=== PATIENT | female | born 1960 | race African-American/Black ===

== ENCOUNTER 2018-05-10 12:28 | Emergency (ER) | payer OTHER ==
[2018-05-10 12:39] VITALS: BP 109/76; PULSE 66; TEMP 98.2; BMI 29.9
[2018-05-10] MEDS ORDERED: KETOROLAC TROMETHAMINE 60 MG/2 ML VIAL IM ONE (12:49)
--- NOTE | 2018-05-10 13:03 | PDOC ---
History of Present Illness - General Chief Complaint: Pain Stated Complaint: ARM PAIN Time Seen by Provider: 05/10/18 12:43 History Source: Patient - History of Present Illness Occurred: reports: yesterday Severity: reports: mild Upper Extremity Pain Location: right: shoulder Past History - Past Medical History Allergies/Adverse Reactions: Allergies Allergy/AdvReac Type Severity Reaction Status Date / Time No Known Allergies Allergy Verified 05/10/18 12:39 Home Medications: Ambulatory Orders Alprazolam 01/16/16 Lipase/Protease/Amylase [Desi Farfan 36,000 Units Capsule] 1 each PO DAILY Amlodipine Besylate [Norvasc -] 5 mg PO DAILY 02/07/16 Nebivolol HCl [Bystolic] 20 mg PO DAILY 02/07/16 Methimazole [Tapazole -] 10 mg PO DAILY 03/08/16 Losartan/Hydrochlorothiazide [Hyzaar 100-12.5 Tablet] 1 tab PO DAILY 09/20/16 Ledipasvir/Sofosbuvir [Harvoni 90-400 mg Tablet] 1 each PO DAILY #28 tablet Clindamycin [Cleocin -] 300 mg PO Q6HPO #28 capsule 05/10/18 Anemia: No Asthma: No Cardiac Disorders: No CVA: No COPD: No Diabetes: No GI Disorders: No Disorders: No HTN: Yes (stable on meds) Hypercholesterolemia: No Kidney Stones: No Liver Disease: No Seizures: No Thyroid Disease: Yes (hyperthyroidism) - Reproductive History PID: No - Suicide/Smoking/Psychosocial Hx Smoking Status: No Smoking History: Never smoked Have you smoked in the past 12 months: No Number of Cigarettes Smoked Daily: 1 If you are a former smoker, when did you quit?: 2 MONTHS AGO Cigars Per Day: 0 'Breaking Loose' booklet given: 06/23/15 Hx Alcohol Use: No Drug/Substance Use Hx: No Substance Use Type: Heroin Hx Substance Use Treatment: Yes (in methadone program) Review of Systems - Review of Systems Constitutional: No: Chills, Fever *Physical Exam - Vital Signs Last Vital Signs Temp Pulse Resp BP Pulse Ox 98.2 F 66 18 109/76 99 05/10/18 12:34 05/10/18 12:34 05/10/18 12:34 05/10/18 12:34 05/10/18 12:34 - Physical Exam General Appearance: Yes: Appropriately Dressed. No: Apparent Distress HEENT: positive: Normal Voice Respiratory/Chest: negative: Respiratory Distress Integumentary: positive: Dry, Warm, Other (< 0.5 cm abscess draining scant pus, no surounding erythema) Neurologic: positive: Fully Oriented, Alert, Normal Mood/Affect Procedures - Incision and Drainage I&D Site: Right: Arm (R shoudler) Betadine cleansed: Yes Anesthesia: 1% Lidocaine Blade Size: 11 Attempts: 1 (scant pus) Plain Packing: No Complications: none Dressing: Yes Medical Decision Making - Medical Decision Making 05/10/18 12:51 57 yo F, hypertension, hyperthyroid, anxiety, polysubstance abuse, hep C virus, here with draining right shoulder abscess. Patient states she popped a pimple on right shoulder 2 days ago and notice worsening pain and swelling since. No fever or chills See exam Superficial shoulder abscess S/p I&D Tetanus UTD -dc w/ abx and wound check in 2 days, no packing placed *DC/Admit/Observation/Transfer Diagnosis at time of Disposition: Shoulder abscess - Discharge Dispostion Disposition: HOME Condition at time of disposition: Good - Prescriptions Prescriptions: Clindamycin [Cleocin -] 300 mg PO Q6HPO #28 capsule - Referrals Referrals: Chantal Pedroza [Primary Care Provider] - - Patient Instructions Printed Discharge Instructions: DI for Skin Abscess Additional Instructions: You were treated for a superficial shoulder abscess that was incised and drained. Keep wound clean and dry x 2 days. Keep covered until scabs over You need to take antibiotics as prescribed and return in 2 days for a wound check - Post Discharge Activity
== END 2018-05-10 13:17 | disposition home or self-care (01) ==
LOC: JERFT 12:28
PROC: 0J9D0ZZ Drainage of Right Upper Arm Subcutaneous Tissue and Fascia, Open Approach (ICD-10-PCS; principal; 2018-05-10)
DX: L02.413 Cutaneous abscess of right upper limb (principal); I10 Essential (primary) hypertension; E05.90 Thyrotoxicosis, unspecified without thyrotoxic crisis or storm; F41.9 Anxiety disorder, unspecified; B18.2 Chronic viral hepatitis C; F11.20 Opioid dependence, uncomplicated
CPT/HCPCS: 10160; 99281-25

== ENCOUNTER → 2018-12-31 | Day surgery (SDC) | payer OTHER ==
--- NOTE | 2019-01-01 15:36 | PATH ---
Surgical Pathology Report Patient Name: RAJIV CURRY [facility]. Rec. #: [id number] /Age/Gender: 1960 (Age: 58) / F Account: [id number] Location: [facility] Taken: 12/31/2018 Received: 12/31/2018 Reported: 01/01/2019 Physicians: MD Bienvenido Cox M.D. Specimen(s) Received A: RIGHT BREAST SPECIMEN - WITH CALCIFICATIONS B: RIGHT BREAST SPECIMEN - WITHOUT CALCIFICATIONS C: LEFT BREAST SPECIMEN - WITH CALCIFICATIONS D: LEFT BREAST SPECIMEN - WITHOUT CALCIFICATIONS Clinical History Non-palpable lesion Mammographic findings: Suspicious microcalcification Final Diagnosis A. BREAST, RIGHT, WITH CALCIFICATIONS STEREOTACTIC BIOPSY: BENIGN BREAST TISSUE SHOWING COLUMNAR CELL CHANGE WITH ASSOCIATED CALCIFICATIONS. FEW CALCIFICATIONS ARE ALSO PRESENT IN ASSOCIATION WITH UNREMARKABLE GLANDULAR PARENCHYMA. B. BREAST, RIGHT, WITHOUT CALCIFICATIONS, STEREOTACTIC BIOPSY: BENIGN BREAST TISSUE. C. BREAST, LEFT, WITH CALCIFICATIONS, STEREOTACTIC BIOPSY: BENIGN BREAST TISSUE SHOWING CYST FORMATION WITH CALCIFICATIONS PRESENT IN ASSOCIATION WITH CYST CONTENTS AND BENIGN GLANDULAR PARENCHYMA. D. BREAST, LEFT, WITHOUT CALCIFICATIONS, STEREOTACTIC BIOPSY: BENIGN BREAST TISSUE SHOWING CYST FORMATION, FOCAL USUAL DUCTAL HYPERPLASIA (UDH) AND FEW CALCIFICATIONS PRESENT IN ASSOCIATION WITH CYST CONTENTS. Electronically Signed Annabella Patricio M.D. Gross Description A. Received in formalin, labeled "right breast with calcifications" are seven cores of light edwards and yellow-edwards tissue, ranging from 0.6-5.5 cm in length with a diameter of up to 0.4 cm. Entirely submitted in two cassettes. B. Received in formalin, labeled "right breast without calcifications" are two cores of light edwards, yellow-edwards, tissue measuring 4 cm and 4.5 cm in length with a diameter of up to 0.4 cm. Entirely submitted in one cassette. C. Received in formalin, labeled "left breast with calcifications" is one core of light edwards and yellow-edwards tissue measuring 2.5 cm in length with a diameter of up to 0.3 cm. Entirely submitted in one cassette. D. Received in formalin, labeled "left breast without calcifications" are six cores of light edwards and yellow-edwards tissue, ranging from 2.8-6 cm in length with a diameter of 0.4 cm. Entirely submitted in two cassettes. Time to formalin fixation: 4-5 minutes. Total formalin fixation time: 8-9 hours AE/12/31/2018 ebram/12/31/2018
== END | disposition home or self-care (01) ==
LOC: FMAMMOTONE 09:26
PROVIDERS: ATTEND Family Medicine
PROC: 0HBV3ZX Excision of Bilateral Breast, Percutaneous Approach, Diagnostic (ICD-10-PCS; principal; 2018-12-31)
DX: N60.12 Diffuse cystic mastopathy of left breast (principal); N60.82 Other benign mammary dysplasias of left breast; N64.89 Other specified disorders of breast; R92.1 Mammographic calcification found on diagnostic imaging of breast
CPT/HCPCS: 19081; 19082; 87899; 88305-TC; A4648

== ENCOUNTER 2019-01-27 11:01 | Emergency (ER) | payer OTHER ==
[2019-01-27 11:16] VITALS: BMI 29.8
[2019-01-27] MEDS ORDERED: methylPREDNISolone NA SUCC 125 MG/2 ML VIAL IVPB ONE (12:24)
[2019-01-27] MEDS ORDERED: ALBUTEROL SO4 2.5/IPRATROPIUM 0.5 INH SOL 3 ML VIAL.NEB. NEB ONE (12:26)
[2019-01-27] MEDS ORDERED: methylPREDNISolone NA SUCC 125 MG/2 ML VIAL ONE (12:27)
[2019-01-27] MEDS: ALBUTEROL SO4 2.5/IPRATROPIUM 0.5 INH SOL 3 ML VIAL.NEB. NEB SCH ×4 (12:45→13:32)
[2019-01-27 12:51] LABS: BASO % 1.1 % (0-2.0); EOS % 6.3 % (0-4.5); HEMOGLOBIN 15.1 GM/dL (10.7-15.3); LYMPH % 27.8 % (8-40); MCH 28.2 pg (25.7-33.7); MCHC 32.2 g/dl (32.0-36.0); MEAN CELL VOLUME 87.6 fl (80-96); MEAN PLT VOLUME 9.7 fl (7.5-11.1); MONO % 7.8 % (3.8-10.2); PLATELET COUNT 269 K/MM3 (134-434); RBC 5.37 M/mm3 (3.60-5.2); RDW 13.5 % (11.6-15.6); WHITE BLOOD COUNT 7.8 K/mm3 (4.0-10.0)
--- NOTE | 2019-01-27 13:35 | PDOC ---
Documentation entered by Gaye Daniel SCRIBE, acting as scribe for Thiago Almazan MD. Thiago Almazan MD: This documentation has been prepared by the Fredy solorzano Natalie, SCRIBE, under my direction and personally reviewed by me in its entirety. I confirm that the documentation accurately reflects all work, treatment, procedures, and medical decision making performed by me. History of Present Illness - General Chief Complaint: Pain, Acute Stated Complaint: CHEST PAIN Time Seen by Provider: 01/27/19 11:36 History Source: Patient Exam Limitations: No Limitations - History of Present Illness Initial Comments: 01/27/19 12:41 The patient is a 58-year-old female, with a past medical history of HTN and hyperthyroidism, who presents to the ED with 10 days of a productive cough and chest pain. Patient states her cough is productive of green sputum and is now associated with midsternal chest pain over the past 2 days. Pt states she only experiences the chest pain when she coughs. She has tried Mucinex with no relief of her symptoms. Pt denies leg swelling. The patient denies fevers, chills, nausea, vomiting, diarrhea, or abdominal pain. She denies any palpitations or shortness of breath. She denies any weakness, dizziness, or changes in strength or sensation. Allergies: NKA PCP: Dr. Scotty Patino Past History - Past Medical History Allergies/Adverse Reactions: Allergies Allergy/AdvReac Type Severity Reaction Status Date / Time No Known Allergies Allergy Verified 01/27/19 11:11 Home Medications: Ambulatory Orders Lipase/Protease/Amylase [Desi Farfan 36,000 Units Capsule] 1 each PO DAILY Amlodipine Besylate [Norvasc -] 5 mg PO DAILY 02/07/16 Nebivolol HCl [Bystolic] 20 mg PO DAILY 02/07/16 Methimazole [Tapazole -] 10 mg PO DAILY 03/08/16 Losartan/Hydrochlorothiazide [Hyzaar 100-12.5 Tablet] 1 tab PO DAILY 09/20/16 Alprazolam [Xanax] mg PO ASDIR 01/27/19 Methadone [Dolophine -] 60 mg PO DAILY 01/27/19 Anemia: No Asthma: No Cardiac Disorders: No CVA: No COPD: No Diabetes: No GI Disorders: No Disorders: No HTN: Yes (stable on meds) Hypercholesterolemia: No Kidney Stones: No Liver Disease: No Seizures: No Thyroid Disease: Yes (hyperthyroidism) - Reproductive History PID: No - Suicide/Smoking/Psychosocial Hx Smoking Status: No Smoking History: Former smoker Have you smoked in the past 12 months: No Number of Cigarettes Smoked Daily: 1 If you are a former smoker, when did you quit?: 2 MONTHS AGO Cigars Per Day: 0 Information on smoking cessation initiated: No 'Breaking Loose' booklet given: 06/23/15 Hx Alcohol Use: No Drug/Substance Use Hx: No Substance Use Type: Heroin Hx Substance Use Treatment: Yes (in methadone program) Review of Systems - Review of Systems Able to Perform ROS?: Yes Comments:: 01/27/19 12:56 GENERAL/CONSTITUTIONAL: No fever or chills. No weakness. HEAD, EYES, EARS, NOSE AND THROAT: No change in vision. No ear pain or discharge. No sore throat. CARDIOVASCULAR: (+) chest pain, no shortness of breath, no loss of consciousness RESPIRATORY: (+)Cough. No wheezing, or hemoptysis. GASTROINTESTINAL: No nausea, vomiting, diarrhea or constipation. GENITOURINARY: No dysuria, frequency, or change in urination. MUSCULOSKELETAL: No joint or muscle swelling or pain. No neck or back pain. SKIN: No rash NEUROLOGIC: No vertigo, no change in strength/sensation. ENDOCRINE: No increased thirst. No abnormal weight change. HEMATOLOGIC/LYMPHATIC: No anemia, easy bleeding, or history of blood clots. ALLERGIC/IMMUNOLOGIC: No hives or skin allergy. *Physical Exam - Vital Signs Last Vital Signs Temp Pulse Resp BP Pulse Ox 98.5 F 78 22 H 159/102 H 97 01/27/19 11:15 01/27/19 11:44 01/27/19 11:44 01/27/19 11:44 01/27/19 11:46 - Physical Exam Comments: 01/27/19 12:57 GENERAL: Awake, alert, and fully oriented, in no acute distress. HEAD: No signs of trauma EYES: PERRLA, EOMI, sclera anicteric, conjunctiva clear ENT: Auricles normal inspection, hearing grossly normal, nares patent, oropharynx clear without exudates. Moist mucosa NECK: Nontender, no stepoffs, Normal ROM, supple, no lymphadenopathy, JVD, or masses LUNGS: (+)Mild expiratory wheezing. No rales. HEART: Regular rate and rhythm, normal S1 and S2, no murmurs, rubs or gallops ABDOMEN: Soft, nontender, normoactive bowel sounds. No guarding, no rebound. No masses EXTREMITIES: Normal range of motion, no edema. No clubbing or cyanosis. No cords, erythema, or tenderness NEUROLOGICAL: Cranial nerves II through XII intact. 5/5 strength and sensation in all extremities, Normal speech, normal cerebellar function SKIN: Warm, Dry, normal turgor, no rashes or lesions noted. Heart Score/ECG Review - History History: Slightly suspicious - Electrocardiogram EKG: Normal - Age Age: 45-65 - Risk Factors Risk Factors Heart Score: Yes Hx Hypertension, Yes Smoking History Based on the list above the patient has:: 1-2 risk factors - Troponin Troponin: </= normal limit - Score Heart Score - Total: 2 - ECG Impressions Comment:: 01/27/19 13:34 NSR, no ASHELY/STDs, no TWIs, axis wnl, intervals wnl, rate 70 ED Treatment Course - LABORATORY CBC & Chemistry Diagram: 01/27/19 12:41 01/27/19 12:41 - ADDITIONAL ORDERS Additional order review: 01/27/19 12:41 RBC 5.37 H MCV 87.6 MCHC 32.2 RDW 13.5 MPV 9.7 Neutrophils % 57.0 Lymphocytes % 27.8 D Monocytes % 7.8 Eosinophils % 6.3 H D Basophils % 1.1 D - RADIOLOGY Radiology Studies Ordered: Category Date Time Status CHEST PA & LAT [RAD] Stat Radiology 01/27/19 12:23 Taken - Medications Given in the ED: ED Medications Discontinued Medications Generic Name Dose Route Start Last Admin Trade Name Freq PRN Reason Stop Dose Admin Albuterol/Ipratropium 1 amp 01/27/19 12:30 01/27/19 13:16 Duoneb - NEB 01/27/19 13:16 1 amp Q15M SUBHA Administration Methylprednisolone Sodium Succinate 125 mg 01/27/19 12:24 01/27/19 12:46 Solu-Medrol - IVPB 01/27/19 12:25 125 mg ONCE ONE Administration Medical Decision Making - Medical Decision Making 01/27/19 13:34 58 F with cough and chest pain. Suspect COPD flare, as pt is wheezing on exam. No fevers but will r/o PNA. Pt with nonischemic EKG, making ACS unlikely. - Labs, trop - CXR - Nebs, steroids - REassess 01/27/19 15:03 Labs wnl CXR clear Pt reassessed - now feels much better after nebs and steroids Will DC with albuterol pump, Z-pack and steroids for COPD Pt is well appearing, with normal vitals. Clinically stable for DC at this time. I discussed the physical exam findings, ancillary test results and final diagnoses with the patient. I answered all of the patient's questions. The patient was satisfied with the care received and felt comfortable with the discharge plan and treatment plan. The patient agrees to follow up with the primary care physician within 24-72 hours. *DC/Admit/Observation/Transfer Diagnosis at time of Disposition: Cough - Discharge Dispostion Disposition: HOME - Referrals Referrals: Scotty Patino [Primary Care Provider] - Scotty Gr MD, [Staff Physician] - - Patient Instructions Printed Discharge Instructions: DI for Acute Bronchitis Additional Instructions: Take the prednisone and azithromycin to treat your cough. Use the albuterol pump every 4 hours as needed for coughing or wheezing. You may have COPD due to smoking. Please stop smoking. Follow up with your primary doctor within 1 week for further evaluation. You should see a design eng (lung specialist) as well. Call the number provided to make an appointment. If you experience worsening cough, shortness of breath, chest pain, or any other concerning symptoms, return to the ER immediately. - Post Discharge Activity - Attestations Physician Attestion: 01/27/19 15:07 I, Dr. Thiago Almazan MD, attest that this document has been prepared under my direction and personally reviewed by me in its entirety. I further attest, that it accurately reflects all work, treatment, procedures and medical decision -making performed by me.
[2019-01-27 13:48] LABS: ALBUMIN 3.8 g/dl (3.4-5.0); ALK PHOS 77 U/L (45-117); ANION GAP 1 MMOL/L (8-16); BILIRUBIN,TOTAL 0.7 mg/dL (0.2-1); BLOOD UREA NITROGEN 7.3 mg/dL (7-18); CALCIUM 9.4 mg/dL (8.5-10.1); CHLORIDE 107 mmol/L (98-107); CO2 33 mmol/L (21-32); CREATININE 0.8 mg/dL (0.55-1.3); GLUCOSE,RANDOM 73 mg/dL (74-106); POTASSIUM 5.6 mmol/L (3.5-5.1); SGOT/AST 26 U/L (15-37); SGPT/ALT 12 U/L (13-61); SODIUM 140 mmol/L (136-145); TOT PROT 8.2 g/dl (6.4-8.2)
[2019-01-27] MEDS ORDERED: AZITHROMYCIN 500 MG TABLET PO ONE (15:10)
[2019-01-27 15:14] VITALS: BP 154/105; PULSE 95; TEMP 98.8
[2019-01-27] MEDS ORDERED: AZITHROMYCIN 250 MG TABLET ONE (15:28)
--- NOTE | 2019-01-28 11:47 | EKG ---
Test Reason : Blood Pressure : / mmHG Vent. Rate : 070 BPM Atrial Rate : 070 BPM P-R Int : 154 ms QRS Dur : 072 ms QT Int : 412 ms P-R-T Axes : 078 013 051 degrees QTc Int : 444 ms NORMAL SINUS RHYTHM POSSIBLE LEFT ATRIAL ENLARGEMENT BORDERLINE ECG NO PREVIOUS ECGS AVAILABLE Confirmed by JOSE ELIAS KRISHNA, NASRIN ([id number]) on 01/28/2019 11:47:16 AM Referred By: Confirmed By:NASRIN MOCTEZUMA MD
== END 2019-01-27 16:01 | disposition home or self-care (01) ==
LOC: JER 11:01
PROC: 3E0F7GC Introduction of Other Therapeutic Substance into Respiratory Tract, Via Natural or Artificial Opening (ICD-10-PCS; principal; 2019-01-27)
PROC: 3E033GC Introduction of Other Therapeutic Substance into Peripheral Vein, Percutaneous Approach (ICD-10-PCS; 2019-01-27)
DX: R05 Cough (principal)
CPT/HCPCS: 36415; 71046-TC-FY; 80053; 82550; 84484; 85025; 93005; 93010; 94640; 96374; 99283-25

== ENCOUNTER 2019-05-13 18:27 | Emergency (ER) | payer OTHER ==
[2019-05-13 18:35] VITALS: TEMP 98.6; BMI 31.4
[2019-05-13] MEDS ORDERED: SODIUM CHLORIDE 1,000 ML IV STA (18:35)
--- NOTE | 2019-05-13 18:53 | PDOC ---
History of Present Illness - General Chief Complaint: Chest Pain Stated Complaint: chest pain Time Seen by Provider: 05/13/19 18:35 History Source: Patient Exam Limitations: No Limitations - History of Present Illness Initial Comments: Xin Monroe is a 58 yo F w a pmh of HTN and hyperthyroidism who presents to the [facility] er BIBEMS after she tripped and fell down 8 stairs. Patient states she lost her footing and then tripped down the stairs but did not experience any LOC. She did hit her head and her neck multiple times during the fall. The patient reports that when EMS picked her up she only had chest pain so EMS was concerned she was having an W[place] and gave the patient 4 baby aspirins. Here in the ER the patient endorses both neck and chest pain. Patient denies taking anti -coagulants but endorses taking aspirin. PCP: Dr. 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 Denies alcohol. Lives with daughter and family. Allergies: NKA, NKDA Past History - Past Medical History Allergies/Adverse Reactions: Allergies Allergy/AdvReac Type Severity Reaction Status Date / Time No Known Allergies Allergy Verified 05/13/19 18:32 Home Medications: Ambulatory Orders Lipase/Protease/Amylase [Desi Farfan 36,000 Units Capsule] 1 each PO DAILY Amlodipine Besylate [Norvasc -] 5 mg PO DAILY 02/07/16 Nebivolol HCl [Bystolic] 20 mg PO DAILY 02/07/16 Methimazole [Tapazole -] 10 mg PO DAILY 03/08/16 Losartan/Hydrochlorothiazide [Hyzaar 100-12.5 Tablet] 1 tab PO DAILY 09/20/16 Alprazolam [Xanax] 0.5 mg PO ASDIR 01/27/19 Methadone [Dolophine -] 60 mg PO DAILY 01/27/19 Prednisone [Prednisone 50 MG TABLETS] 50 mg PO DAILY #4 tablet 01/27/19 Albuterol Sulfate Inhaler - [Ventolin HFA Inhaler -] 1 - 2 inh PO Q4H PRN Anemia: No Asthma: No Cardiac Disorders: No CVA: No COPD: No Diabetes: No GI Disorders: No Disorders: No HTN: Yes Hypercholesterolemia: No Kidney Stones: No Liver Disease: No Seizures: No Thyroid Disease: Yes (hyperthyroidism) - Reproductive History PID: No - Psycho Social/Smoking Cessation Hx Smoking Status: No Smoking History: Never smoked Have you smoked in the past 12 months: No Number of Cigarettes Smoked Daily: 1 If you are a former smoker, when did you quit?: 2 MONTHS AGO Cigars Per Day: 0 'Breaking Loose' booklet given: 06/23/15 Hx Alcohol Use: No Drug/Substance Use Hx: No Substance Use Type: Heroin Hx Substance Use Treatment: Yes (in methadone program) Review of Systems - Review of Systems Able to Perform ROS?: Yes Comments:: CONSTITUTIONAL: Absent: fever, no chills, no fatigue EYES: Absent: visual changes ENT: Absent: ear pain, no sore throat CARDIOVASCULAR: Present: Chest pain Absent: no palpitations RESPIRATORY: Absent: cough, no SOB GI: Absent: abdominal pain, no nausea, no vomiting, no constipation, no diarrhea GENITOURINARY: Absent: dysuria, no frequency, no hematuria MUSKULOSKELETAL: Present: Back pain, arthralgia Absent: no myalgia SKIN: Absent: rash NEURO: Absent: headache *Physical Exam - Vital Signs Last Vital Signs Temp Pulse Resp BP Pulse Ox 98.6 F 71 18 103/72 100 05/13/19 18:33 05/13/19 18:33 05/13/19 18:33 05/13/19 18:33 05/13/19 18:33 - Physical Exam Comments: GENERAL: Patient is awake, alert and in no acute distress. Speech is clear and appropriate. HEAD: Atraumatic and nontender. HEENT: Pupils are equal round and reactive to light, extraocular movements are intact. No facial deformity. No facial bone tenderness or step-off. The oropharynx is clear. NECK: The trachea is midline, there is no stridor. There is no midline cervical spine tenderness, full range of motion of neck. CHEST: Non-tender, no ecchymosis or abrasions. Equal chest wall expansion bilaterally. No flail segments. Lungs are clear to auscultation bilaterally. CARDIOVASCULAR: S1-S2, regular rate and rhythm. No murmurs or rubs. ABDOMEN: Soft, nontender, nondistended. Bowel sounds are normoactive. There is no abdominal or flank ecchymosis. BACK/PELVIS: There is no midline thoracic or lumbosacral spine tenderness or step-off. Pelvis is stable and nontender. EXTREMITIES: There is no extremity deformity or joint swelling. No focal bony tenderness throughout. 2+ distal pulses throughout. NEURO: Alert and oriented x3. Cranial nerves II through XII are intact. 5 out of 5 motor strength x4 extremities. No gross sensory deficits. Bwblrb-dizn-rwepes is intact. SKIN: No abrasions, hematomas, lacerations. PSYCH: Affect is appropriate Procedures - Bedside Ultrasound Bedside Ultrasound: Focused Assessment w/Sonography for Trauma Remarks: FAST: No intra-abdominal free fluid eFAST: b/l lung sliding no sings of pneumothorax ED Treatment Course - LABORATORY CBC & Chemistry Diagram: 05/13/19 18:44 05/13/19 18:44 - RADIOLOGY Radiology Studies Ordered: Category Date Time Status CERVICAL SPINE CT W/O CONTR [CT] Stat CT Scan 05/13/19 18:[address] WITHOUT CONTRAST [CT] Stat CT Scan 05/13/19 18:48 Ordered CHEST X-RAY PORTABLE* [RAD] Stat Radiology 05/13/19 18:36 Ordered Medical Decision Making - Medical Decision Making Xin Monroe is a 58 yo F w a pmh of HTN and hyperthyroidism who presents to the [facility] er BIBEMS after she tripped and fell down 8 stairs. Patient states she lost her footing and then tripped down the stairs but did not experience any LOC. She did hit her head and her neck multiple times during the fall. The patient reports that when EMS picked her up she only had chest pain so EMS was concerned she was having an W[place] and gave the patient 4 baby aspirins. Here in the ER the patient endorses both neck and chest pain. Patient denies taking anti -coagulants but endorses taking aspirin. Vital Signs Temp Pulse Resp BP Pulse Ox 98.6 F 71 18 103/72 100 05/13/19 18:33 05/13/19 18:33 05/13/19 18:33 05/13/19 18:33 05/13/19 18:33 DDx IBNLT: ICH, cervical fx, rib fx, pneumothorax, pulm contusion, electrolyte/ metabolic disturbance Plan: Labs, EKG, FAST, [place] Scan, analgesia, IV hydration, re-assess EKG: NS rate of 68, narrow complex, normal axis, no hypertrophy, no ST elevations or depression, no Q waves, QTc 461 Labs: Mild leukocytosis eFAST: Negative for intra-abdominal pain. Normal lung sliding b/l. CT: No acute pathology - There are many chronic problems in the CT. - Patient handed copy of her CT results and instructed to follow up with her PCP regarding the findings. - Patient given GI referral to 4 doctors bc CBD is enlarged. Re-assessment: Patient feels well after analgesia and requests to be discharged. Disposition: Home with PCP FU Discharge - Discharge Information Problems reviewed: Yes Clinical Impression/Diagnosis: Fall (on) (from) other stairs and steps, initial encounter Condition: Improved Disposition: HOME - Admission No - Follow up/Referral Referrals: Milana Choe [Primary Care Provider] - Regine Gallo MD [Staff Physician] - Flakito Sauceda MD [Staff Physician] - Grant Mustafa DO [Staff Physician] - Claude Lobo MD [Staff Physician] - - Patient Discharge Instructions Patient Printed Discharge Instructions: Trauma, DI for Atypical Chest Pain, DI for Chest Pain Additional Instructions: You came into the ER after you tripped and fell down the stairs. We did a cat scan and found no acute injuries. You are not bleeding in your chest, head, or abdomen. Please make sure to follow up with your primary care doctor in the next 3 to 5 days to make sure you are feeling well and getting better. Come back to the ER immediately if your pain worsens, you get a headache, feel nauseous, or have any other new or worsening concerns. Thank you for coming to the [facility] ER. We hope you feel better soon! Print Language: SOUTH AFRICAN - Post Discharge Activity Work/Back to School Note: Back to Work
[2019-05-13 19:01] LABS: EOS % 3.3 % (0-4.5); HEMATOCRIT 44.3 % (32.4-45.2); HEMOGLOBIN 13.9 GM/dL (10.7-15.3); LYMPH % 31.9 % (8-40); MCH 27.8 pg (25.7-33.7); MCHC 31.4 g/dl (32.0-36.0); MEAN CELL VOLUME 88.4 fl (80-96); NEUT % 56.8 % (42.8-82.8); PLATELET COUNT 237 K/MM3 (134-434); RBC 5.02 M/mm3 (3.60-5.2); RDW 13.6 % (11.6-15.6); WHITE BLOOD COUNT 11.4 K/mm3 (4.0-10.0)
[2019-05-13 19:17] LABS: INR 0.99 (0.83-1.09); PROTHROMBIN TIME (PATIENT) 11.7 SEC (9.7-13.0)
[2019-05-13 19:40] LABS: ALBUMIN 3.5 g/dl (3.4-5.0); BILIRUBIN,TOTAL 0.5 mg/dL (0.2-1); BLOOD UREA NITROGEN 17.7 mg/dL (7-18); CALCIUM 8.9 mg/dL (8.5-10.1); CREATININE 0.9 mg/dL (0.55-1.3); MAGNESIUM 2.3 mg/dL (1.8-2.4); TOT PROT 7.4 g/dl (6.4-8.2)
--- NOTE | 2019-05-13 20:21 | PDOC ---
Attending Attestation - Resident Resident Name: Marshall Acuña - ED Attending Attestation I have performed the following: I have examined & evaluated the patient, The case was reviewed & discussed with the resident, I agree w/resident's findings & plan, Exceptions are as noted - HPI HPI: 05/13/19 20:17 58F pmh HTN, hyperthyroid BIBEMS after mechanical fall down an 8 step staircase. Endorses hitting her head and neck on the way down. Denies LOC, n/v , amnesia. No prodrome, no dizziness, no lightheadedness, no palpitations, no chest pain prior to fall. She has pain to her head and neck and her L flank, chest. She was given 4 baby asa by EMS when she described her left sided pain for concern of ACS. No other complaints - Physicial Exam PE: 05/13/19 20:19 Agree with exam as documented by resident - Medical Decision Making 05/13/19 20:20 Here for evaluation of trauma. HPI consistent with mechanical fall. Low risk for syncopal or neurological event as trigger for fall. Analgesia f/u imaging dispo per clinical course Imaging negative for trauma Spleen with possible cyst like structure, inconsistent with bleeding, laceration CBD 10mm but patient denies abdominal pain, afebrile, no tenderness, no jaundice , mental status at baseline DC with GI f/u, PCP f/u
[2019-05-13 21:55] VITALS: BP 129/84; PULSE 72
[2019-05-13 22:37] LABS: PH,URINE 5.5 (5.0-8.0); URINE APPEARANCE CLEAR; URINE BILIRUBIN NEGATIVE (NEGATIVE); URINE COLOR DK YELLOW; URINE GLUCOSE (UA) NEGATIVE (NEGATIVE); URINE KETONE TRACE (NEGATIVE); URINE PROTEIN NEGATIVE (NEGATIVE)
[2019-05-13 22:38] LABS: URINE LEUK ESTERASE 1+ (NEGATIVE); URINE NITRITE NEGATIVE (NEGATIVE)
[2019-05-13 22:39] LABS: EPI CELLS 7.7 /HPF (0-5/HPF); HYALINE CASTS 12 /lpf (0-8); URINE BACTERIA 289.5 /hpf (NEGATIVE); URINE RBC 5 /hpf (0-4); URINE WBC 9 /hpf (0-5)
--- NOTE | 2019-05-14 14:08 | EKG ---
Test Reason : Blood Pressure : / mmHG Vent. Rate : 068 BPM Atrial Rate : 068 BPM P-R Int : 168 ms QRS Dur : 072 ms QT Int : 434 ms P-R-T Axes : 068 011 034 degrees QTc Int : 461 ms POOR DATA QUALITY, INTERPRETATION MAY BE ADVERSELY AFFECTED NORMAL SINUS RHYTHM NORMAL ECG WHEN COMPARED WITH ECG OF 27-JAN-2019 10:59, NO SIGNIFICANT CHANGE WAS FOUND Confirmed by CIERA GARCIA MD ([id number]) on 05/14/2019 2:08:22 PM Referred By: Confirmed By:CIERA GARCIA MD
== END 2019-05-13 21:57 | disposition home or self-care (01) ==
LOC: JER 18:27
PROC: 3E0337Z Introduction of Electrolytic and Water Balance Substance into Peripheral Vein, Percutaneous Approach (ICD-10-PCS; principal; 2019-05-13)
PROC: BW40ZZZ Ultrasonography of Abdomen (ICD-10-PCS; 2019-05-13)
PROC: B246ZZZ Ultrasonography of Right and Left Heart (ICD-10-PCS; 2019-05-13)
DX: M54.2 Cervicalgia (principal); R10.32 Left lower quadrant pain; R51 Headache; W10.8XXA Fall (on) (from) other stairs and steps, initial encounter; Y93.89 Activity, other specified; Y92.038 Other place in apartment as the place of occurrence of the external cause; Y99.8 Other external cause status; I10 Essential (primary) hypertension; E05.90 Thyrotoxicosis, unspecified without thyrotoxic crisis or storm; F11.20 Opioid dependence, uncomplicated
CPT/HCPCS: 36415; 70450-TC; 71045-TC-FY; 71260-TC; 72125-TC; 74177-TC; 80053; 81003; 83735; 84484; 85025; 85610; 93005; 93010; 99283-25; J7030

== ENCOUNTER 2020-02-11 17:41 | Emergency (ER) | payer OTHER ==
[2020-02-11] MEDS ORDERED: LIDOCAINE 5% TOPICAL PATCH TP ONE (18:04)
[2020-02-11] MEDS ORDERED: predniSONE 20 MG TABLET (UD) PO ONE (18:04)
[2020-02-11] MEDS ORDERED: LIDOCAINE 5% TOPICAL PATCH ONE (18:07)
[2020-02-11] MEDS ORDERED: predniSONE 20 MG TABLET (UD) ONE (18:07)
[2020-02-11 18:10] VITALS: BP 138/94; PULSE 77; TEMP 98.1; BMI 29.2
[2020-02-11] MEDS ORDERED: LIDOCAINE PATCH REMOVAL MC SCH (22:00)
== END 2020-02-11 18:58 | disposition home or self-care (01) ==
LOC: JER 17:41
DX: M54.41 Lumbago with sciatica, right side (principal); G89.29 Other chronic pain
CPT/HCPCS: 99284-25